=== PATIENT | male | born 1975 | race Hispanic/Latino ===

== ENCOUNTER 2018-09-09 14:35 | Emergency (ER) | payer BC ==
[2018-09-09 15:20] LABS: #Basophils 0.1 thou/uL (0.0-0.2); #Eosinphils 0.2 thou/uL (0.0-0.7); #Lymphocytes 1.5 thou/uL (1.20-3.40); #Monocytes 0.6 thou/uL (0.11-0.59); #Neutrophils 5.7 thou/uL (1.40-6.50); %Basophils 0.8 % (0.0-1.0); %Lymphocytes 18.6 % (21.0-51.0); %Monocytes 7.1 % (0.0-10.0); %Neutrophils 71.5 % (42.0-75.0); Hemoglobin 14.2 g/dL (14.0-18.0); Mean Corpuscular HGB CONC 32.8 g/dL (32.0-36.0); Mean Corpuscular Hemoglobin 29.3 pg (27.0-31.0); Mean Corpuscular Volume 89.4 fL (78.0-98.0); Mean Platelet Volume 7.9 fL (7.4-10.4); Platelet Count 291 thou/uL (130-400); RBC Distribution Width 11.1 % (11.5-14.5); Red Blood Cell (RBC) Count 4.86 mill/uL (4.70-6.10)
[2018-09-09 15:23] LABS: Bilirubin Negative (Negative); Blood, Urine Negative (Negative); Glucose, Urine (Dipstick) Negative (Negative); Leukocyte Negative (Negative); Nitrite Negative (Negative); Protein, Urine (Dipstick) Negative (Neg-Trace); Specific Gravity, Urine 1.025 (1.005-1.030)
[2018-09-09 15:24] LABS: Clarity SL HAZY (Clear)
[2018-09-09 15:35] LABS: ALT (SGPT) 95 U/L (8-55); AST (SGOT) 48 U/L (5-34); Albumin 4.3 g/dL (3.5-5.0); Alkaline Phosphatase 120 U/L (40-150); Anion Gap 13 mmol/L (10-20); BUN (Urea Nitrogen) 14 mg/dL (8.9-20.6); Bilirubin, Total 0.7 mg/dL (0.2-1.2); Calc. Creatinine Clearance 0 mL/min (70-130); Calcium 9.7 mg/dL (7.8-10.44); Carbon Dioxide 26 mmol/L (22-29); Chloride 105 mmol/L (98-107); Estimated GFR-MDRD Greater than 90; Globulin 3.3 g/dL (2.4-3.5); Glucose 99 mg/dL (70-105); Lipase 24 U/L (8-78); Protein, Total 7.6 g/dL (6.0-8.3); Sodium 140 mmol/L (136-145)
== END 2018-09-09 16:34 | disposition home or self-care (01) ==
LOC: NAV ERS 14:35
DX: R10.10 Upper abdominal pain, unspecified (principal); R94.5 Abnormal results of liver function studies; F17.220 Nicotine dependence, chewing tobacco, uncomplicated
CPT/HCPCS: 80053; 81003; 83690; 85025; 93005; 94760